=== PATIENT | female | born 1970 | race Caucasian/White ===

== ENCOUNTER 2018-02-07 12:36 | Emergency (ER) | payer SELFPAY ==
[~2018-02-07] VITALS: Ht 154.9 cm; Wt 77.3 kg
[2018-02-07 13:11] VITALS: BP 131/47
== END 2018-02-07 18:33 | disposition left against medical advice (07) ==
LOC: ER 12:36
DX: Z53.21 Procedure and treatment not carried out due to patient leaving prior to being seen by health care provider (principal)

== ENCOUNTER 2018-08-06 09:45 | Emergency (ER) | payer SELFPAY ==
[~2018-08-06] VITALS: Ht 160 cm; Wt 75.0 kg
[2018-08-06] MEDS ORDERED: MAGNESIUM/ALUMINUM HYDROXIDE/SIMETHICONE 30ML UDC PO STA (11:41)
[2018-08-06] MEDS ORDERED: KETOROLAC 30MG/ML VIAL IV STA (11:41)
[2018-08-06] MEDS ORDERED: VISCOUS LIDOCAINE 2% 15 ML UDC PO STA (11:41)
[2018-08-06] MEDS ORDERED: DICYCLOMINE 10 MG/5 ML ORAL SYR PO STA (11:41)
[2018-08-06] MEDS ORDERED: ONDANSETRON HCL 4MG/2ML INJ IV STA (11:41)
[2018-08-06 11:57] LABS: BASOPHILS % 0.1 % (0.0-2.0); HEMATOCRIT. 42.3 % (36.0-48.0); HEMOGLOBIN. 14.1 g/dL (12.0-16.0); LYMPHOCYTES % 9.8 % (20.0-50.0); MEAN CORPUSCULAR HEMOGLOBIN 29.9 pg (28.0-32.0); MEAN CORPUSCULAR VOLUME 89.6 fL (81.0-99.0); MEAN PLATELET VOLUME 8.7 fl (7.4-10.4); MONOCYTES % 2.4 % (2.0-8.0); NEUTROPHILS % 87.7 % (40.0-76.0); PLATELET 266 x1000/uL (130-400); RED BLOOD CELL COUNT 4.73 mill/uL (4.2-5.4); RED CELL DISTRIBUTION WIDTH 13.4 % (11.6-14.6)
[2018-08-06 12:03] LABS: CHLORIDE 105 mEq/L (98-107)
[2018-08-06 12:05] LABS: INR 1.1; PROTHROMBIN TIME 11.1 sec (9.6-11.0)
[2018-08-06 12:20] LABS: HCG SCREEN NEGATIVE
[2018-08-06 13:18] LABS: CLARITY URINE CLEAR (CLEAR); COLOR URINE YELLOW (YELLOW); KETONES URINE NEGATIVE (NEGATIVE); LEUKOCYTE ESTERASE URINE TRACE (NEGATIVE); NITRITE URINE NEGATIVE (NEGATIVE); OCCULT BLOOD URINE NEGATIVE (NEGATIVE); PH URINE 6.5 (4.5-8.0); PROTEIN URINE 1+ (NEGATIVE); SPECIFIC GRAVITY URINE 1.023 (1.005-1.030); UROBILINOGEN URINE 0.2 E.U./dL (0.2-1.0)
[2018-08-06 14:30] VITALS: BP 107/67
== END 2018-08-06 14:35 | disposition home or self-care (01) ==
LOC: ER 09:45
DX: R10.13 Epigastric pain (principal); K21.9 Gastro-esophageal reflux disease without esophagitis
CPT/HCPCS: 36415; 80053; 81003; 83690; 84703; 85025; 85610; 93005; 96374; 96375; 99284; J1885; J2405

== ENCOUNTER 2018-08-08 23:30 | Emergency (ER) | payer SELFPAY ==
[~2018-08-08] VITALS: Ht 162.6 cm; Wt 75.0 kg
[2018-08-09] MEDS ORDERED: ONDANSETRON HCL 4MG/2ML INJ IV STA (00:34)
[2018-08-09] MEDS ORDERED: MAGNESIUM/ALUMINUM HYDROXIDE/SIMETHICONE 30ML UDC PO STA (00:34)
[2018-08-09 00:57] LABS: BASOPHILS % 0.4 % (0.0-2.0); EOSINOPHILS % 0.7 % (0.0-5.0); HEMATOCRIT. 41.2 % (36.0-48.0); HEMOGLOBIN. 13.7 g/dL (12.0-16.0); LYMPHOCYTES % 28.5 % (20.0-50.0); MEAN CORPUSCULAR HEMOGLOBIN 29.9 pg (28.0-32.0); MEAN CORPUSCULAR VOLUME 89.8 fL (81.0-99.0); MONOCYTES % 9.1 % (2.0-8.0); NEUTROPHILS % 61.3 % (40.0-76.0); PLATELET 284 x1000/uL (130-400); RED BLOOD CELL COUNT 4.59 mill/uL (4.2-5.4); RED CELL DISTRIBUTION WIDTH 13.5 % (11.6-14.6)
[2018-08-09 01:15] LABS: CHLORIDE 101 mEq/L (98-107)
[2018-08-09 01:20] LABS: CLARITY URINE CLEAR (CLEAR); COLOR URINE YELLOW (YELLOW); KETONES URINE 1+ (NEGATIVE); LEUKOCYTE ESTERASE URINE 2+ (NEGATIVE); NITRITE URINE NEGATIVE (NEGATIVE); OCCULT BLOOD URINE TRACE (NEGATIVE); PROTEIN URINE NEGATIVE (NEGATIVE); SPECIFIC GRAVITY URINE 1.022 (1.005-1.030)
[2018-08-09] MEDS ORDERED: KETOROLAC 15MG/ML VIAL IV ONE (02:45)
[2018-08-09 03:35] VITALS: BP 118/61
== END 2018-08-09 03:38 | disposition home or self-care (01) ==
LOC: ER 23:30
DX: K80.20 Calculus of gallbladder without cholecystitis without obstruction (principal); N39.0 Urinary tract infection, site not specified; K21.9 Gastro-esophageal reflux disease without esophagitis; Z98.890 Other specified postprocedural states
CPT/HCPCS: 36415; 76705; 80053; 81003; 83690; 85025; 93005; 96374; 96375; 99284; J1885; J2405; Z7610